=== PATIENT | female | born 1955 | race Two or more races ===

== ENCOUNTER 2021-05-25 20:40 | Emergency (ER) | payer MEDICAID, OTHER ==
[~2021-05-25] VITALS: Ht 165.1 cm; Wt 77.1 kg
[2021-05-26 00:02] VITALS: BP 130/79
== END 2021-05-26 00:11 | disposition home or self-care (01) ==
LOC: ER 20:42
DX: U07.1 COVID-19 (principal); R51.9 Headache, unspecified; R19.7 Diarrhea, unspecified; M79.10 Myalgia, unspecified site; R50.9 Fever, unspecified; I10 Essential (primary) hypertension; E11.9 Type 2 diabetes mellitus without complications
CPT/HCPCS: 36415; 71045; 87426